=== PATIENT | male | born 1940 | race Caucasian/White ===

== ENCOUNTER → 2020-05-15 | Outpatient (CLI) | payer MEDICARE ==
[~2020-05-15] MED LIST: METOPROLOL 1 MG/ML, 5ML ONE; VISIPAQUE 320 MG/ML, 150ML BOTTLE ONE
[2020-05-15 10:10] LABS: CREATININE 0.84 mg/dL (0.7-1.3)
== END | disposition home or self-care (01) ==
LOC: CVU 09:45
PROVIDERS: ATTEND Internal Medicine Cardiovascular Disease
DX: Z01.810 Encounter for preprocedural cardiovascular examination (principal); I65.23 Occlusion and stenosis of bilateral carotid arteries; E11.9 Type 2 diabetes mellitus without complications; I35.0 Nonrheumatic aortic (valve) stenosis; J43.2 Centrilobular emphysema; I70.0 Atherosclerosis of aorta; I71.4 Abdominal aortic aneurysm, without rupture; N28.1 Cyst of kidney, acquired; K44.9 Diaphragmatic hernia without obstruction or gangrene; I10 Essential (primary) hypertension; Z77.098 Contact with and (suspected) exposure to other hazardous, chiefly nonmedicinal, chemicals
CPT/HCPCS: 36415; 71275; 74174; 82565; 93880; 94060; 94726; 94729; Q9967

== ENCOUNTER → 2020-05-18 | Outpatient (CLI) | payer MEDICARE ==
[~2020-05-18] MED LIST changes: +ALBU8.5H8 INH; +BUDE10.22 PO; +CITA10TA4 PO; +DIGO125T85 PO; +FINA5TAB4 PO; +FLUT9.9S NAS; +IPRA12.9 PO; +METO50TA82 PO; -METOPROLOL 1 MG/ML, 5ML ONE; +TAMS-11 PO; +VARE1TAB21 PO; -VISIPAQUE 320 MG/ML, 150ML BOTTLE ONE
== END | disposition home or self-care (01) ==
LOC: STAR 11:19
PROVIDERS: ATTEND Anesthesiology
DX: Z01.812 Encounter for preprocedural laboratory examination (principal); Z20.828 Contact with and (suspected) exposure to other viral communicable diseases
CPT/HCPCS: 36415; 87635